=== PATIENT | female | born 1935 | race Caucasian/White ===

== ENCOUNTER 2017-04-09 14:55 | Emergency (ER) | payer MEDICARE ==
[~2017-04-09] VITALS: Wt 72.6 kg
[~2017-04-09 14:55] MED LIST: LISINOPRIL20 MG PO
[2017-04-09] MEDS ORDERED: VITAMIN D1000 IU PO (15:00)
[2017-04-09] MEDS ORDERED: KEFLEX500 M1 PO (16:11)
[2017-04-09] MEDS ORDERED: NAPROSYN500 MG PO (16:11)
[2017-04-09 16:56] LABS: BODY FLUID RBC 7000 /uL; BODY FLUID WBC 1282 /uL
[2017-04-09 17:43] LABS: BF LYMPHOCYTES 31 %; BF MONOCYTES 12 %; BF NEUTROPHILS 55 %
[2017-04-09 17:45] LABS: BODY FLUID TYPE SYNOVIAL
== END 2017-04-09 16:21 | disposition home or self-care (01) ==
LOC: ED 14:55
PROVIDERS: Nurse Practitioner Family
DX: M70.51 Other bursitis of knee, right knee (principal); F41.1 Generalized anxiety disorder; Z88.0 Allergy status to penicillin; Z90.49 Acquired absence of other specified parts of digestive tract; Y93.89 Activity, other specified

== ENCOUNTER 2018-04-10 09:42 | Emergency (ER) | payer MEDICARE ==
[~2018-04-10] VITALS: Ht 157.4 cm; Wt 74.8 kg
[~2018-04-10 09:42] MED LIST changes: +KEFLEX500 M1 PO; +NAPROSYN500 MG PO; +VITAMIN D1000 IU PO
[2018-04-10] MEDS ORDERED: CITALOPRAM20 MG PO (09:55)
[2018-04-10] MEDS ORDERED: AMLODIPINE BESY10 MG PO (09:56)
[2018-04-10 10:01] LABS: BASO # 0.1 10*3/uL (0.0-0.1); BASO % 0.9 % (0.0-1.0); EOS # 0.4 10*3/uL (0.0-0.4); EOS % 5.4 % (1.0-4.0); HEMATOCRIT 36.7 % (37.0-47.0); HEMOGLOBIN 12.1 g/dl (12.0-16.0); LYMPH # 1.5 10*3/uL (1.3-4.4); LYMPH % 21.1 % (27.0-41.0); MEAN CELL VOLUME 92.9 fl (81.0-99.0); MEAN CORPUSCULAR HGB 30.6 pg (27.0-31.0); MEAN PLATELET VOLUME 9.9 fl (9.6-12.3); MONO # 0.6 10*3/uL (0.1-1.0); MONO % 8.7 % (3.0-9.0); NEUT # 4.4 10*3/uL (2.3-7.9); NEUT % 63.6 % (47.0-73.0); PLATELET COUNT AUTOMATED 255 10*3/uL (130-400); RED BLOOD COUNT 3.95 10*6/uL (4.10-5.10); RED CELL DISTRI WIDTH 13.8 % (0-14.5)
[2018-04-10 10:15] LABS: ALBUMIN 3.4 gm/dl (3.1-4.5); ALKALINE PHOSPHATASE 102 U/L (45-117); BUN 18 mg/dl (7-24); CHLORIDE 106 mmol/L (98-107); CREATININE 0.94 mg/dL (0.55-1.02); SGOT/AST 15 IU/L (3-35); SGPT/ALT 16 U/L (12-78); SODIUM 140 mmol/L (136-145); TOTAL PROTEIN 6.9 gm/dL (6.4-8.2)
== END 2018-04-10 10:38 | disposition home or self-care (01) ==
LOC: ED 09:42
PROVIDERS: Nurse Practitioner Family
DX: R21 Rash and other nonspecific skin eruption (principal); I16.0 Hypertensive urgency; E66.9 Obesity, unspecified; Z68.34 Body mass index [BMI] 34.0-34.9, adult; Z79.899 Other long term (current) drug therapy; Z90.49 Acquired absence of other specified parts of digestive tract; Z88.0 Allergy status to penicillin

== ENCOUNTER 2020-03-29 16:28 | Emergency (ER) | payer MEDICARE ==
[~2020-03-29] VITALS: Ht 157.4 cm; Wt 72.6 kg
[~2020-03-29 16:28] MED LIST changes: +AMLODIPINE BESY10 MG PO; +CITALOPRAM20 MG PO
[2020-03-29] MEDS ORDERED: TEMOVATE30 GM T ×2 (17:10)
== END 2020-03-29 17:14 | disposition home or self-care (01) ==
LOC: ED 16:28
DX: L30.9 Dermatitis, unspecified (principal); Z88.0 Allergy status to penicillin; Z79.899 Other long term (current) drug therapy

== ENCOUNTER 2020-07-15 17:08 | Emergency (ER) | payer MEDICARE ==
[~2020-07-15] VITALS: Ht 157.4 cm; Wt 72.6 kg
[~2020-07-15 17:08] MED LIST changes: +TEMOVATE30 GM T
[2020-07-15 18:00] LABS: BASO # 0.1 10*3/uL (0.0-0.1); BASO % 0.4 % (0.0-1.0); EOS # 0.1 10*3/uL (0.0-0.4); EOS % 0.6 % (1.0-4.0); LYMPH # 1.5 10*3/uL (1.3-4.4); LYMPH % 11.5 % (27.0-41.0); MEAN CELL VOLUME 92.4 fl (81.0-99.0); MEAN CORPUSCULAR HGB 29.6 pg (27.0-31.0); MEAN PLATELET VOLUME 9.7 fl (9.6-12.3); MONO # 0.6 10*3/uL (0.1-1.0); NEUT # 10.5 10*3/uL (2.3-7.9); NEUT % 82.1 % (47.0-73.0); PLATELET COUNT AUTOMATED 250 10*3/uL (130-400); RED BLOOD COUNT 4.33 10*6/uL (4.10-5.10); RED CELL DISTRI WIDTH 13.2 % (0-14.5); WHITE BLOOD COUNT 12.8 10*3/uL (4.8-10.8)
[2020-07-15 18:13] LABS: ACT PARTIAL THROMBO TIME 26.6 SECONDS (20.0-32.1); INTERNATIONAL NORM RATIO 0.9 (2.0-3.5)
[2020-07-15 18:20] LABS: ALBUMIN 3.9 gm/dl (3.1-4.5); CREATININE 1.72 mg/dL (0.55-1.02); POTASSIUM 4.1 mmol/L (3.5-5.1)
== END 2020-07-15 21:53 | disposition home or self-care (01) ==
LOC: ED 17:08
PROVIDERS: Emergency Medicine
DX: S43.005A Unspecified dislocation of left shoulder joint, initial encounter (principal); Z88.0 Allergy status to penicillin; Z79.899 Other long term (current) drug therapy; Z90.49 Acquired absence of other specified parts of digestive tract; W19.XXXA Unspecified fall, initial encounter; Y93.89 Activity, other specified; Y92.89 Other specified places as the place of occurrence of the external cause; Y99.8 Other external cause status

== ENCOUNTER 2024-02-20 12:16 | Emergency (ER) | payer MEDICARE ==
[~2024-02-20] VITALS: Ht 157.4 cm; Wt 72.6 kg
[2024-02-20 13:39] LABS: BASO % 0.4 % (0.0-1.0); EOS # 0.1 10*3/uL (0.0-0.4); EOS % 1.7 % (1.0-4.0); HEMATOCRIT 39.9 % (37.0-47.0); LYMPH # 1.1 10*3/uL (1.3-4.4); LYMPH % 14.7 % (27.0-41.0); MEAN CELL VOLUME 94.1 fl (81.0-99.0); MEAN CORPUSCULAR HGB CONC 31.8 g/dl (33.0-37.0); MONO # 0.6 10*3/uL (0.1-1.0); NEUT # 5.6 10*3/uL (2.3-7.9); NEUT % 74.9 % (47.0-73.0); PLATELET COUNT AUTOMATED 235 10*3/uL (130-400); RED BLOOD COUNT 4.24 10*6/uL (4.10-5.10); RED CELL DISTRI WIDTH 13.8 % (0-14.5); WHITE BLOOD COUNT 7.5 10*3/uL (4.8-10.8)
[2024-02-20 13:55] LABS: BUN 15 mg/dl (9-23); CHLORIDE 104 mmol/L (98-107); POTASSIUM 3.8 mmol/L (3.4-5.1)
[2024-02-20] MEDS ORDERED: PREDNISONE20 M1 PO (15:00)
[2024-02-20] MEDS ORDERED: LAC-HYDRIN FIV226 GM T (15:00)
[2024-02-20] MEDS ORDERED: VIBRAMYCIN100 MG PO (15:07)
[2024-02-20] MEDS ORDERED: Doxycycline Hyclate 100 MG CAP PO ONE (15:10)
[2024-02-20] MEDS ORDERED: methylPREDNISolone sod succ 125 MG VIAL IM ONE (15:10)
== END 2024-02-20 15:45 | disposition home or self-care (01) ==
LOC: ED 12:16
PROVIDERS: Nurse Practitioner Family
DX: L30.9 Dermatitis, unspecified (principal); L03.113 Cellulitis of right upper limb; I10 Essential (primary) hypertension; Z88.0 Allergy status to penicillin; Z90.49 Acquired absence of other specified parts of digestive tract; Z98.890 Other specified postprocedural states

== ENCOUNTER 2024-12-13 10:26 | Emergency (ER) | payer MEDICARE ==
[~2024-12-13] VITALS: Wt 68.9 kg
[~2024-12-13 10:26] MED LIST changes: +LAC-HYDRIN FIV226 GM T; +PREDNISONE20 M1 PO; +VIBRAMYCIN100 MG PO
[2024-12-13] MEDS ORDERED: Acetaminophen/Hydrocodone 5 MG/325 MG TABLET PO ONE (11:20)
[2024-12-13] MEDS ORDERED: Ketorolac Tromethamine 15 MG/ML VIAL IV ONE (12:20)
[2024-12-13] MEDS ORDERED: Ketamine Hydrochloride 500 MG,IV 1 EA in SODIUM CHLORIDE 0.9% 500 ML IV ONE (13:20)
[2024-12-13] MEDS ORDERED: PROPOFOL 200 MG/20 ML VIAL IV ONE (13:20)
[2024-12-13] MEDS ORDERED: Ketamine Hydrochloride 500 MG/10 ML VIAL IV ONE (13:25)
[2024-12-13] MEDS ORDERED: Ketamine Hydrochloride 500 MG/10 ML VIAL ONE (13:39)
[2024-12-13] MEDS ORDERED: NAPROSYN500 MG PO (14:15)
== END 2024-12-13 16:50 | disposition home or self-care (01) ==
LOC: ED 10:26
DX: S43.014A Anterior dislocation of right humerus, initial encounter (principal); S81.811A Laceration without foreign body, right lower leg, initial encounter; Z88.0 Allergy status to penicillin; Z79.899 Other long term (current) drug therapy; Z90.49 Acquired absence of other specified parts of digestive tract; Z98.890 Other specified postprocedural states; W00.9XXA Unspecified fall due to ice and snow, initial encounter; Y99.8 Other external cause status; Y93.89 Activity, other specified; Y92.89 Other specified places as the place of occurrence of the external cause